=== PATIENT | female | born 1995 | race Caucasian/White ===

== ENCOUNTER 2024-10-28 09:05 | Outpatient (CLI) | payer MEDICAID, SELFPAY ==
--- NOTE | 2024-10-28 09:30 | MR_ITS ---
WS: [id number] MRI HEAD WITH CONTRAST TECHNIQUE: Sagittal T1, T2 axial, T2 axial FLAIR, axial susceptibility weighted imaging, axial diffusion weighted images, and coronal T2 images were obtained. Pre and post-T1 axial and post T1 coronal images. ADC and FSPGR images. CLINICAL INFORMATION: G43.909 - Migraine, unspecified, not intractable, without... COMPARISON: None. FINDINGS: No evidence of restricted diffusion to suggest acute ischemia. No suspicious intracranial signal abnormalities. Slightly low-lying cerebellar tonsils. Normal fourth ventricle. Normal vascular flow voids at the skull base. No extra-axial fluid collections. No evidence of mass or mass effect. Small retention cyst LEFT maxillary sinus. No hemosiderin. Normal optic chiasm and pituitary infundibulum. Temporal lobes and hippocampal formations are normal in appearance. No abnormal gadolinium enhancement. Normal cavernous sinuses and Meckel's cave. Normal dural venous sinuses. MR/MR head wo/w con [id number] IMPRESSION: 1. No evidence of restricted diffusion to suggest acute ischemia. 2. No suspicious intracranial signal abnormalities. 3. Incidental slightly low-lying cerebellar tonsils. Normal fourth ventricle. 4. Small retention cyst LEFT maxillary sinus. 5. No hemosiderin.
[2024-10-28] MEDS: gadobenate dimeglumine 20 mL vial IV (10:14)
== END 2024-10-28 09:06 | disposition home or self-care (01) ==
LOC: RAD 09:05
PROVIDERS: PCP Nurse Practitioner Family; Visit Provider Psychiatry & Neurology Neurology
DX: G43.909 Migraine, unspecified, not intractable, without status migrainosus (principal); G93.2 Benign intracranial hypertension; R93.0 Abnormal findings on diagnostic imaging of skull and head, not elsewhere classified; M27.40 Unspecified cyst of jaw
CPT/HCPCS: 70553

== ENCOUNTER 2024-11-11 08:08 | Outpatient (CLI) | payer MEDICAID, SELFPAY ==
--- NOTE | 2024-11-11 08:30 | FL_ITS ---
WS: [id number] LUMBAR PUNCTURE CLINICAL INFORMATION: G93.2 - Benign intracranial hypertension COMPARISON: None. TECHNIQUE: Informed consent: The procedure and its potential risk and complications were discussed with the patient. Verbal and written consent was obtained. Timeout: A timeout was performed to confirm correct patient, procedure, and site. Patient was prepped and draped in the usual sterile fashion. Lidocaine 1% was used for local anesthesia. Utilizing fluoroscopic guidance, a 3.5 inch 22-gauge spinal needle was advanced into the subarachnoid space at L3-L4 via LEFT oblique sublaminar approach. Free flow of clear CSF was obtained. 13 cc of CSF was collected and sent the lab for further analysis. FLUOROSCOPIC TIME: 1min [id number] # of spot films: 1 FL/FL guided lumbarpunc dx* [id number] IMPRESSION: Fluoroscopically guided lumbar puncture. No immediate complications Opening pressure 20 ml H20 and closing pressure 12 ml H20
[2024-11-11 10:08] LABS: Appearance CSF CLEAR (CLEAR); Color CSF COLORLESS (COLORLESS); PATH Referral YES
[2024-11-11 10:13] LABS: Mononuclear WBC CSF % 100 % (50-90); Polynuclear WBC CSF % 0 % (0-10); Red Blood Cell CSF 0 10^3/uL (0-0); White Blood Cell CSF 1 /uL (0-5)
[2024-11-11 10:31] LABS: Glucose CSF 60 mg/dL (40-70); Total Protein CSF 47 mg/dL (15-45)
[2024-11-16 00:10] LABS: VDRL on CSF NON-REACTIVE
== END 2024-11-11 08:09 | disposition home or self-care (01) ==
LOC: RAD 08:09
PROVIDERS: PCP Nurse Practitioner Family; Visit Provider Psychiatry & Neurology Neurology
DX: G93.2 Benign intracranial hypertension (principal); G43.909 Migraine, unspecified, not intractable, without status migrainosus
CPT/HCPCS: 62328; 80503; 82945; 84157; 86592; 87015; 87070; 87075; 87116; 87205; 87206; 87327; 87801; 89050; J9999